=== PATIENT | male | born 1990 | race Caucasian/White ===

== ENCOUNTER 2016-11-24 20:13 | Emergency (ER) | payer MEDICAID ==
[~2016-11-24] VITALS: Ht 182.9 cm; Wt 79.4 kg
[2016-11-24] MEDS ORDERED: AUGMENTIN 875-1 EACH PO (20:38)
[2016-11-24] MEDS ORDERED: DEPO-TESTOS100 MG/ML IM (20:39)
--- NOTE | 2016-11-24 21:08 | Urgent Treatment Center Report ---
History of Present Issue Date/Time Seen by Provider 11/24/162102 Visit Reason Pt arrived:Walked Presenting Problem:PT C/O PAIN WHEN SWALLOWING X 1 WEEK, PT RPTS HE'S BEEN TO HIS PCP, DR ROMINA DE LA CRUZ IN [place], WAS TESTED FOR STREP WITH A NEGATIVE RESULT, WAS TOLD HE HAS TONSIL STONES AND HAS AN ENT APPT WITH DR BARKER WITHIN THE NEXT WEEK. PT WAS ALSO SEEN AT [facility] AND WAS DIAGNOSED WITH AN URI, AUGMENTION AND ROBITUSSIN DM. Location if Accident: Onset of symptoms date/time:11/17/16/ or onset unknown for:MEDICAL HX UNKNOWN Have you (or family members/close friends) recently traveled outside the [place]? N If Yes, where/when: Have you had exposure to infectious disease within the past month? TB? Other? Specify: Source patient Exam Limitations no limitations Comment 26-year-old male presents for sore throat. Patient states he's been seen by his primary care doctor and was diagnosed with tonsil stones has an ENT appointment this week. Patient states pain has increased and pain with swallowing. Patient is on amoxicillin and Robitussin for cough. That has shown little improvement. Was tested for strep and the PCP this week and was negative. ALLERGIES Coded Allergies: sumatriptan (From IMITREX) (11/24/16) Home Medications Reported Medications Amoxicillin/Potassium Clav (Augmentin 875-125 Tablet) 1 EACH PO BID Testosterone Cypionate (Depo-Testosterone) 100 MG IM BIWEEKLY History Medical History General CAD? No Angina: No [place]: No Hypertension? No Hyperlipidemia? No CHF? No DVT? No PE? No COPD? No Asthma? No Anemia? No GERD? No Gastric ulcers? No GI Bleed? No Hernia? No Thyroid Problems? No Hypothyroidism? No CVA? No Seizures? No Diabetes? No Renal Insuffiency? No UTI? No Stones? No BPH? No GB Disease: No Nephritic Syndrome? No Asplenia? No Hepatitis? No Sickle Cell Disease? No Arthritis? No Migraines? No Cataracts? No Glaucoma? No MRSA? No HIV? No TB? No Anxiety? No Depression? No Cancer? No Immunization HX DT/Tetanus Unknown Surgical Hx Previous Surgery?Y HYDROCELE Social History Smoking Hx Smoker: Current Every Day Smoker Tobacco: Yes Type Cigarettes Alcohol Alcohol: No Review of Systems All Other Systems Reviewed and Negative ENT see HPI. Physical Exam Vital Signs Vital Signs Date Time Temp Pulse Resp B/P Pulse O2 O2 Flow FiO2 Ox Delivery Rate 11/25 2035 98.3 104 20 139/90 99 11/24 2016 98.3 104 20 139/90 99 - WBC >12,000 or <4,000 or 10% bands? 2 or more SIRS Criteria Met? B/P:139/90 MAP:106 Creatinine >2.0? UA output<0.5ml/kg/hr for 2 hrs? Platelet count >100,000? Lactate >2.0mmol/1? INR >1.2 or PTT > than 60 sec? Evidence of Organ Dysfunction? Provider documented clinical suspician of infection? Sepsis Criteria Count: 2 Sepsis Risk: General Appearance normal appearance, WD/WN, no apparent distress Eye Exam - bilateral eye normal exam, bilateral eye PERRL Ear, Nose, Throat hearing grossly normal, normal ENT inspection, pharyngeal erythema, tonsillar exudate, tonsil stone noted on RIGHT tonsil Neck normal inspection, full range of motion Respiratory Status Yes: trachea midline, chest symmetrical, non tender chest. No: respiratory distress. Cardiovascular normal exam Neurologic alert, normal exam, oriented x 3 Medical Decision Making LABS/Meds/Orders Pt receiving controlled substance in ED? No Results/Orders Laboratory Tests 11/24/162040: Group A Strep Screen NOT DETECTED Orders Procedure Date/time Status [facility] STREP SCREEN 11/24 2040 Complete Departure Departure Time of Disposition 2105 Disposition DC Home or Self Care(routine) Clinical Impression Primary Impression: Tonsillitis Secondary Impressions: Tonsil stone Condition STABLE Referrals MARYAN DE LA CRUZ (Family) Patient Instructions Sore Throat Additional Instructions Gargling warm salt water every 2 as needed for comfort. Tylenol and Motrin for pain or discomfort. Listerine gargles as needed. Keep ENT appointment this week. Any other problems or concerns return to the [facility] or ER. stop Amoxicillin start Zithromax Discharge Counseling Counseled pt/family regarding diagnosis, test results, home care, follow up needs at 2102
--- NOTE | 2016-11-24 21:08 | Urgent Treatment Center Report ---
History of Present Issue Date/Time Seen by Provider 11/24/162102 Visit Reason Pt arrived:Walked Presenting Problem:PT C/O PAIN WHEN SWALLOWING X 1 WEEK, PT RPTS HE'S BEEN TO HIS PCP, DR ROMINA DE LA CRUZ IN [place], WAS TESTED FOR STREP WITH A NEGATIVE RESULT, WAS TOLD HE HAS TONSIL STONES AND HAS AN ENT APPT WITH DR BARKER WITHIN THE NEXT WEEK. PT WAS ALSO SEEN AT [facility] AND WAS DIAGNOSED WITH AN URI, AUGMENTION AND ROBITUSSIN DM. Location if Accident: Onset of symptoms date/time:11/17/16/ or onset unknown for:MEDICAL HX UNKNOWN Have you (or family members/close friends) recently traveled outside the [place]? N If Yes, where/when: Have you had exposure to infectious disease within the past month? TB? Other? Specify: Source patient Exam Limitations no limitations Comment 26-year-old male presents for sore throat. Patient states he's been seen by his primary care doctor and was diagnosed with tonsil stones has an ENT appointment this week. Patient states pain has increased and pain with swallowing. Patient is on amoxicillin and Robitussin for cough. That has shown little improvement. Was tested for strep and the PCP this week and was negative. ALLERGIES Coded Allergies: sumatriptan (From IMITREX) (11/24/16) Home Medications Reported Medications Amoxicillin/Potassium Clav (Augmentin 875-125 Tablet) 1 EACH PO BID Testosterone Cypionate (Depo-Testosterone) 100 MG IM BIWEEKLY History Medical History General CAD? No Angina: No [place]: No Hypertension? No Hyperlipidemia? No CHF? No DVT? No PE? No COPD? No Asthma? No Anemia? No GERD? No Gastric ulcers? No GI Bleed? No Hernia? No Thyroid Problems? No Hypothyroidism? No CVA? No Seizures? No Diabetes? No Renal Insuffiency? No UTI? No Stones? No BPH? No GB Disease: No Nephritic Syndrome? No Asplenia? No Hepatitis? No Sickle Cell Disease? No Arthritis? No Migraines? No Cataracts? No Glaucoma? No MRSA? No HIV? No TB? No Anxiety? No Depression? No Cancer? No Immunization HX DT/Tetanus Unknown Surgical Hx Previous Surgery?Y HYDROCELE Social History Smoking Hx Smoker: Current Every Day Smoker Tobacco: Yes Type Cigarettes Alcohol Alcohol: No Review of Systems All Other Systems Reviewed and Negative ENT see HPI. Physical Exam Vital Signs Vital Signs Date Time Temp Pulse Resp B/P Pulse O2 O2 Flow FiO2 Ox Delivery Rate 11/25 2035 98.3 104 20 139/90 99 11/24 2016 98.3 104 20 139/90 99 - WBC >12,000 or <4,000 or 10% bands? 2 or more SIRS Criteria Met? B/P:139/90 MAP:106 Creatinine >2.0? UA output<0.5ml/kg/hr for 2 hrs? Platelet count >100,000? Lactate >2.0mmol/1? INR >1.2 or PTT > than 60 sec? Evidence of Organ Dysfunction? Provider documented clinical suspician of infection? Sepsis Criteria Count: 2 Sepsis Risk: General Appearance normal appearance, WD/WN, no apparent distress Eye Exam - bilateral eye normal exam, bilateral eye PERRL Ear, Nose, Throat hearing grossly normal, normal ENT inspection, pharyngeal erythema, tonsillar exudate, tonsil stone noted on RIGHT tonsil Neck normal inspection, full range of motion Respiratory Status Yes: trachea midline, chest symmetrical, non tender chest. No: respiratory distress. Cardiovascular normal exam Neurologic alert, normal exam, oriented x 3 Medical Decision Making LABS/Meds/Orders Pt receiving controlled substance in ED? No Results/Orders Laboratory Tests 11/24/162040: Group A Strep Screen NOT DETECTED Orders Procedure Date/time Status [facility] STREP SCREEN 11/24 2040 Complete Departure Departure Time of Disposition 2105 Disposition DC Home or Self Care(routine) Clinical Impression Primary Impression: Tonsillitis Secondary Impressions: Tonsil stone Condition STABLE Referrals MARYAN DE LA CRUZ (Family) Patient Instructions Sore Throat Additional Instructions Gargling warm salt water every 2 as needed for comfort. Tylenol and Motrin for pain or discomfort. Listerine gargles as needed. Keep ENT appointment this week. Any other problems or concerns return to the [facility] or ER. stop Amoxicillin start Zithromax Discharge Counseling Counseled pt/family regarding diagnosis, test results, home care, follow up needs at 2103
[2016-11-24] MEDS ORDERED: ZITHROMAX Z-PA250 M2 PO (21:09)
[2016-11-24 21:12] VITALS: BP 139/90
== END 2016-11-24 21:13 | disposition home or self-care (01) ==
LOC: ER 20:13 → UTC 20:28 → ER 20:28 → UTC 21:13
DX: J03.90 Acute tonsillitis, unspecified (principal); J35.8 Other chronic diseases of tonsils and adenoids